=== PATIENT | female | born 1990 | race Caucasian/White ===

== ENCOUNTER 2016-11-25 19:49 | Emergency (ER) | payer SELFPAY ==
[2016-11-25 19:59] VITALS: BP 128/78; PULSE 71; RESP 18; TEMP 98.4; O2SAT 100
[2016-11-25] MEDS ORDERED: PROPARACAINE HCL 0.5% OPHT SOLN 15 ML BTL EACH EYE ONE (20:15)
[2016-11-25] MEDS ORDERED: MOXIFLOXACIN 0.5% OPHT SOLN 3 ML BTL RIGHT EYE ONE (20:45)
[2016-11-25] MEDS ORDERED: VIGA0.5D RIGHT EYE (20:49)
[2016-11-25] MEDS ORDERED: PERC5TAB12 PO (20:49)
[2016-11-25] MEDS ORDERED: CYCL1%O RIGHT EYE (20:49)
--- NOTE | 2016-11-25 20:49 | PD ---
HPI Chief Complaint: Eye Problems/Injury Time Seen by Provider: 20:06 Travel History International Travel<30 days: No Contact w/Intl Traveler<30days: No Traveled to known affect area: No History of Present Illness HPI Is a 26-year-old woman who presents to the emergency department complaining of right eye redness and pain starting today. She wears contact lenses. She's had a corneal abrasion one time in the remote past. She otherwise is very healthy. She states she started getting a little bit of irritation and foreign body sensation this morning. She started having worsening eye redness and tearing throughout the day. She states she's having worsening severe pain, when she blinks, and which has her eyes closed. She took her contacts out but didn't really seem to help. She can wear glasses. She hasn't really noticed any change in her vision. She does have photophobia. She has not used any new drops or waste chopper. She's not been swimming. She is visiting from out of town. She did just drive down here from [place]. History Past Medical History Medical History: Denies Significant Hx Tetanus Vaccination: < 5 Years Influenza Vaccination: No Past Surgical History Surgical History: No Previous Surgery Social History Alcohol Use: No Tobacco Use: No Allergies-Medications (Allergen,Severity, Reaction): Coded Allergies: Penicillin (Verified Allergy, Unknown, 11/25/16) Review of Systems Except as stated in HPI: all other systems reviewed are Neg Physical Exam Narrative GENERAL: This a 26-year-old woman, generally well-appearing, no acute distress. SKIN: Warm and dry. EYE: Right eye is very injected and red, there is clear tearing. She appears obviously uncomfortable and somewhat photophobic. On bright light exam, there is no consensual photophobia. She has a small white infiltrate just outside the visual axis in the 9:00/temporal position. On bright light exam there is some evidence of ulceration around it. On Flourescene exam there is minimal uptake in that same area. There is no hyphema. She has complete relief with topical anesthetic. There is no photophobia at that point. I don't see any evidence of cell or flare. Lid was everted. There is no foreign bodies. CARDIOVASCULAR: Warm and well perfused. RESPIRATORY: Normal rate and effort. NEUROLOGICAL: Awake and alert. No gross deficits. Data Data Last Documented VS Vital Signs Date Time Temp Pulse Resp B/P Pulse Ox O2 Delivery O2 Flow Rate FiO2 11/25/16 20:26 20 11/25/16 19:59 98.4 71 128/78 100 Orders Proparacaine 0.5% Opth Soln (Alcaine 0.5 (11/25/16 20:15) MDM Medical Decision Making Medical Screen Exam Complete: Yes Emergency Medical Condition: Yes Differential Diagnosis Ulceration, keratitis, uveitis, abrasion, other Narrative Course Medical decision making This 26-year-old woman, otherwise healthy, contact lens wearer with a small corneal ulceration. I spoke with Dr. Chanel Pagan. She recommends Vigamox every hour until she follows up on Sunday. Could also do Cyclogyl twice a day for cycloplegia. Percocet for pain. Diagnosis Primary Impression: Corneal ulceration Additional Instructions: Take Vigamox eyedrops every 1 hour until you follow up with Dr. Pagan. Use Cyclogyl twice a day to help with pain. Take Aleve as needed for pain. Use Percocet if needed for severe pain. Use caution as this can cause unsteadiness, constipation. Do not combine with alcohol. Do not take while driving. Return to the emergency department for any worsening pain, redness, changes in vision, or any other new or worsening symptoms. Call Dr. Pagan's office first thing Sunday for immediate follow-up. Med/Other Pt SpecificInfo: Prescription(s) given Scripts Oxycodone-Acetaminophen (Percocet)5-325 mg Tab1 Tab PO Q6H PRN (PAIN) #12 TAB Ref 0 Prov:Jero Lechuga MD 11/25/16 Cyclopentolate Opth Drops (Cyclogyl Opth Drops)1% Soln1 Drop RIGHT EYE BID #2 ML Ref 0 Prov:Jero Lechuga MD 11/25/16 Moxifloxacin Opth Drops (Vigamox Opth Drops)0.5 % Soln1 Drop RIGHT EYE Q 1 HOUR #1 BOTTLE Ref 0 Prov:Jero Lechuga MD 11/25/16 Disposition: 01 DISCHARGE HOME Condition: Stable Jero Lechuga MD Nov 25, 2016 20:49
--- NOTE | 2016-11-25 20:50 | PD ---
Data Data Last Documented VS Vital Signs Date Time Temp Pulse Resp B/P Pulse Ox O2 Delivery O2 Flow Rate FiO2 11/25/16 20:26 20 11/25/16 19:59 98.4 71 128/78 100 Orders Proparacaine 0.5% Opth Soln (Alcaine 0.5 (11/25/16 20:15) Moxifloxacin 0.5% Opht Soln (Vigamox 0.5 (11/25/16 20:45) MDM Supervised Visit with KRISTINA: No Diagnosis Primary Impression: Corneal ulceration Additional Instruction: Avoid contact lens wear and discard the most recent set of contacts you were using. Take Vigamox eyedrops every 1 hour until you follow up with Dr. Pagan. Use Cyclogyl twice a day to help with pain. Take Aleve as needed for pain. Use Percocet if needed for severe pain. Use caution as this can cause unsteadiness, constipation. Do not combine with alcohol. Do not take while driving. Return to the emergency department for any worsening pain, redness, changes in vision, or any other new or worsening symptoms. Call Dr. Pagan's office first thing Sunday morning for immediate follow-up. Scripts Oxycodone-Acetaminophen (Percocet)5-325 mg Tab1 Tab PO Q6H PRN (PAIN) #12 TAB Ref 0 Prov:Jero Lechuga MD 11/25/16 Cyclopentolate Opth Drops (Cyclogyl Opth Drops)1% Soln1 Drop RIGHT EYE BID #2 ML Ref 0 Prov:Jero Lechuga MD 11/25/16 Moxifloxacin Opth Drops (Vigamox Opth Drops)0.5 % Soln1 Drop RIGHT EYE Q 1 HOUR #1 BOTTLE Ref 0 Prov:Jero Lechuga MD 11/25/16 Disposition: 01 DISCHARGE HOME Condition: Stable Jero Lechuga MD Nov 25, 2016 20:50
== END 2016-11-25 20:58 | disposition home or self-care (01) ==
LOC: PHEFT 19:49
DX: H16.001 Unspecified corneal ulcer, right eye (principal)
CPT/HCPCS: 99282